=== PATIENT | female | born 1985 | race Caucasian/White ===

== ENCOUNTER 2017-12-06 18:41 | Emergency (ER) | payer OTHER ==
[2017-12-06 18:47] VITALS: RESP 16; TEMP 97.5
[2017-12-06] MEDS ORDERED: NS 1,000 ML IV ONE (20:27)
--- NOTE | 2017-12-06 20:34 | CPEKG ---
Heart Rate: 64 RR Interval: 938 P-R Interval: 156 QRSD Interval: 82 QT Interval: 404 QTC Interval: 417 P [place]: 59 QRS [place]: 56 T Wave [place]: 7 EKG Severity - NORMAL ECG - EKG Impression: SINUS RHYTHM Electronically Signed By: Frederick Mansfield 09-Dec-2017 12:30:56
[2017-12-06 20:55] LABS: PLATELET COUNT 317 10^3/uL (150-400)
[2017-12-06] MEDS ORDERED: MECLIZINE HCL 25 MG TAB PO ONE (21:10)
--- NOTE | 2017-12-06 21:48 | EDPHY ---
H & P Stated Complaint: syncopal event while waiting in line for icecream/no injury HPI/ROS: Chief complaint: Dizziness, nearly passed out History of present illness: This is a 32-year-old female who presents to the emergency department for evaluation of dizziness. She states she was standing in line to get ice cream when she started to get dizzy. She describes a somewhat lightheadedness, but more felt like she was off balance and things were moving around her, she was able to grab the railing and lower herself to the ground. She does not believe she fully lost consciousness although she is not entirely sure. At this time she reports feeling mildly dizzy although she is having a hard time describing it. She denies other associated signs or symptoms including no report of headache, no report of associated neurologic symptoms such as paresthesias, weakness or paralysis or bowel or bladder dysfunction. She denies precipitating factors such as fever, cold symptoms or trauma. Further, no trauma from when she lowered herself to the ground. Review of systems: A 10 point review of systems was obtained and other than described above was negative - Personal History LMP (Females 10-55): 22-28 Days Ago Current Tetanus/Diphtheria Vaccine: Yes - Medical/Surgical History Hx Asthma: No Hx Chronic Respiratory Disease: No Hx Diabetes: No Hx Cardiac Disease: No Hx Renal Disease: No Hx Cirrhosis: No Hx Alcoholism: No Hx HIV/AIDS: No Hx Splenectomy or Spleen Trauma: No Other PMH: mitral valve prolapse - Social History Smoking Status: Never smoked - Physical Exam Exam: General Appearance: Alert, nontoxic. Eyes: Pupils equal and round no pallor or injection. Mild horizontal nystagmus that appropriately extinguishes. No rotary or vertical nystagmus. ENT, Mouth: Tympanic membranes, external auditory canals, external easr and surrounding soft tissue including over the mastoids are unremarkable. Nasopharynx is not injected. There is no rhinorrhea. Oropharynx is not injected. There is no edema. There is no exudate. There is no asymmetry. The uvula is midline. Ferny-Hallpike maneuver is negative bilaterally. Respiratory: There are no retractions, lungs are clear to auscultation. Cardiovascular: Regular rate and rhythm. Gastrointestinal: Abdomen is soft and non tender, no masses, bowel sounds normal. Neurological: Alert and oriented x4. Cranial nerves 2-12 grossly intact. Strength and sensation intact and symmetrical. Cerebellar testing intact using finger to nose and heel to bhakta. No pronator drift. Ambulating without difficulty. No meningismus. Skin: Warm and dry, no rashes. Musculoskeletal: Neck is supple non tender. Extremities are symmetrical, full range of motion. Psychiatric: Patient is oriented X 3, there is no agitation. Constitutional: Initial Vital Signs Temperature (C) 36.4 C 12/06/17 18:44 Heart Rate 72 12/06/17 18:44 Respiratory Rate 16 12/06/17 18:44 Blood Pressure 136/97 H 12/06/17 18:44 O2 Sat (%) 98 12/06/17 18:44 O2 Delivery Mode Room Air Allergies/Adverse Reactions: No Known Allergies Allergy (Unverified 12/06/17 18:43) Home Medications: Medication Instructions Recorded Meclizine HCl [Meclizine HCl 25 mg 25 mg PO BID #10 tab 12/06/17 (RX,OTC)] Nuva Ring 12/06/17 Medical Decision Making ED Course/Re-evaluation: Patient is discussed with my secondary supervising physician Dr. Heidi Dao. Patient presents to the emergency department for dizziness. She does describe symptoms of vertigo. However on presentation she is does not appear to be having symptoms and I am unable to precipitate them. She is nontoxic. Vital signs are stable. She has a benign physical exam including a nonfocal neurologic exam. Blood studies and EKG are unremarkable. She is given a meclizine with mild improvement in symptoms. She has been hydrated. I believe she is appropriate for discharge home. Home care is discussed. She is to follow up with her primary care doctor for recheck. Return precautions are given. Patient voiced understanding and agreement with plan. Differential Diagnosis: Included but not limited to vertiginous causes of her symptoms including peripheral and central vertigo causes, dizziness secondary to vasovagal, orthostatic, anemia, cardiac disturbances - Data Points Laboratory Results: Laboratory Results 12/06/17 20:25 12/06/17 20:25 12/06/17 12/06/17 12/06/17 20:25 20:25 20:25 WBC 8.65 10^3/uL 10^3/uL (3.80-9.50) RBC 4.75 10^6/uL 10^6/uL (4.18-5.33) Hgb 14.3 g/dL g/dL (12.6-16.3) Hct 42.8 % % (38.0-47.0) MCV 90.1 fL fL (81.5-99.8) MCH 30.1 pg pg (27.9-34.1) MCHC 33.4 g/dL g/dL (32.4-36.7) RDW 11.8 % % (11.5-15.2) Plt Count 317 10^3/uL 10^3/uL (150-400) MPV 9.5 fL fL (8.7-11.7) Neut % (Auto) 62.2 % % (39.3-74.2) Lymph % (Auto) 26.8 % % (15.0-45.0) [place] % (Auto) 7.9 % % (4.5-13.0) Eos % (Auto) 2.1 % % (0.6-7.6) Baso % (Auto) 0.8 % % (0.3-1.7) Nucleat RBC Rel Count 0.0 % % (0.0-0.2) Absolute Neuts (auto) 5.38 10^3/uL 10^3/uL (1.70-6.50) Absolute Lymphs (auto) 2.32 10^3/uL 10^3/uL (1.00-3.00) Absolute Monos (auto) 0.68 10^3/uL 10^3/uL (0.30-0.80) Absolute Eos (auto) 0.18 10^3/uL 10^3/uL (0.03-0.40) Absolute Basos (auto) 0.07 10^3/uL 10^3/uL (0.02-0.10) Absolute Nucleated RBC 0.00 10^3/uL 10^3/uL (0-0.01) Immature Gran % 0.2 % % (0.0-1.1) Immature Gran # 0.02 10^3/uL 10^3/uL (0.00-0.10) Sodium 136 mEq/L mEq/L (135-145) Potassium 3.9 mEq/L mEq/L (3.5-5.2) Chloride 106 mEq/L mEq/L (97-110) Carbon Dioxide 18 mEq/l L mEq/l (22-31) Anion Gap 12 mEq/L mEq/L (8-16) BUN 12 mg/dL mg/dL (7-23) Creatinine 0.8 mg/dL mg/dL (0.6-1.0) Estimated GFR > 60 Glucose 82 mg/dL mg/dL (70-100) Calcium 9.8 mg/dL mg/dL (8.5-10.4) Troponin I < 0.012 ng/mL ng/mL (0.000-0.034) Beta HCG, Qual NEGATIVE Medications Given: Discontinued Medications Sodium Chloride (Ns) 1,000 mls @ 0 mls/hr IV EDNOW ONE; Wide Open PRN Reason: Protocol Stop: 12/06/17 20:28 Last Admin: 12/06/17 20:49 Dose: 1,000 mls Meclizine HCl (Meclizine Hcl) 25 mg PO EDNOW ONE Stop: 12/06/17 21:11 Last Admin: 12/06/17 21:13 Dose: 25 mg Departure - Departure Disposition: Home, Routine, Self-Care Clinical Impression: Dizziness Condition: Good Instructions: Dizziness (ED) Additional Instructions: Follow-up with your primary care doctor next Saturday or Saturday for recheck You can use meclizine 25 mg every 8 hr for the next 2-3 days for symptom control If symptoms worsen or new symptoms develop return to the emergency room for recheck Referrals: Juana Blackwood MD [Primary Care Provider] - As per Instructions Prescriptions: Meclizine HCl [Meclizine HCl 25 mg (RX,OTC)] 25 mg PO BID #10 tab
[2017-12-06 22:30] VITALS: BP 124/83; PULSE 84; O2SAT 96
== END 2017-12-06 22:38 | disposition home or self-care (01) ==
DX: R42 Dizziness and giddiness (principal); E86.9 Volume depletion, unspecified

== ENCOUNTER 2017-12-14 08:16 | Emergency (ER) | payer OTHER ==
[2017-12-14 08:20] VITALS: RESP 18
--- NOTE | 2017-12-14 09:00 | EDPHY ---
H & P Smoking Status: Never smoked Time Seen by Provider: 12/14/17 08:21 HPI/ROS: CHIEF COMPLAINT: Left foot injury HISTORY OF PRESENT ILLNESS: 32-year-old female presents to the emergency department with injury to her left foot. The patient was walking with some socks on last night around 10:00 p.m. And inverted her left foot. She complains of isolated pain to the dorsal lateral aspect of the left foot. She is unable to bear weight on it because of pain. Denies any other trauma or injury. ROS: Denies numbness or tingling in her toes, pain in her left ankle , calf, or knee. (Soledad Lemos) Past Medical/Surgical History: Mitral valve prolapse (Selma Lemosa Bao) Social History: Single (Soledad Lemos) Physical Exam: On examination the patient has obvious swelling and ecchymosis to the dorsal lateral aspect of the left foot. She has reproducible pain with palpation over the 5th metatarsal especially. She has some mild pain over the 4th metatarsal as well. Nontender to palpate at the base of the 5th metatarsal. She is able to dorsi and plantar flex her left ankle. Her left ankle appears stable. Nontender to palpate over the lateral or medial malleolus. Achilles tendon is intact. Calf is nontender. She has normal sensation to light touch with normal 2 point discrimination. Strong dorsalis pedis pulse on the dorsal aspect of the left foot. (Soledad Lemos) Constitutional: Initial Vital Signs Temperature (C) 36.8 C 12/14/17 08:17 Heart Rate 88 12/14/17 08:17 Respiratory Rate 18 12/14/17 08:17 Blood Pressure 118/90 H 12/14/17 08:17 O2 Sat (%) 97 12/14/17 08:17 O2 Delivery Mode Room Air Allergies/Adverse Reactions: No Known Allergies Allergy (Verified 12/14/17 08:17) Home Medications: Medication Instructions Recorded Meclizine HCl [Meclizine HCl 25 mg 25 mg PO BID #10 tab 12/06/17 (RX,OTC)] Nuva Ring 12/06/17 MDM/Departure - [facility] Imaging: I viewed and interpreted images myself - [facility] Imaging Results: X-rays of the left foot reveal 5th metatarsal fracture. This is reviewed by myself the PAC system. Radiology interpretation to follow. (Soledad Lemos) Procedures: Patient was placed in Tellez boot and examined post application in good placement with normal RADIOLOGIC TECHNOLOGY INSTRUCTOR. (Soledad Lemos) ED Course/Re-evaluation: PHYSICIAN DOCUMENTATION: The patient was evaluated and managed by the Physician Box Shook Patcher. My co- signature indicates that I have reviewed this chart and I agree with the findings and plan of care as documented. I am the secondary supervising physician. (Bjorn Camargo) 32-year-old female presents to the emergency department with pain in her left foot. X-rays reveal 5th metatarsal fracture. Patient was placed in a Tellez boot and given orthopedic referral. She will be nonweightbearing until follow- up with orthopedic surgery. (Soledad Lemos) - Depart Disposition: Home, Routine, Self-Care Clinical Impression: Foot fracture, left Qualifiers: Encounter type: initial encounter Fracture type: closed Qualified Code(s): S92.902A - Unspecified fracture of left foot, initial encounter for closed fracture Condition: Good Instructions: Foot Fracture in Adults (ED) Additional Instructions: Tellez boot for comfort and support. Nonweightbearing, use crutches. Ibuprofen 600 mg every 8 hr as needed for pain. Follow up with orthopedic surgery next week to recheck. Ice and elevate to help reduce swelling. Referrals: Boubacar Manzano MD [Medical Doctor] - 5-7 days, call for appt. (Orthopedic surgeon on-call)
[2017-12-14 09:25] VITALS: BP 117/80; PULSE 66; TEMP 97.3; O2SAT 95
== END 2017-12-14 09:25 | disposition home or self-care (01) ==
DX: S92.352A Displaced fracture of fifth metatarsal bone, left foot, initial encounter for closed fracture (principal); X58.XXXA Exposure to other specified factors, initial encounter; Y99.8 Other external cause status; Y93.01 Activity, walking, marching and hiking
CPT/HCPCS: L4386